=== PATIENT | female | born 1975 | race Caucasian/White ===

== ENCOUNTER 2017-03-05 11:59 | Emergency (ER) | payer BC ==
--- NOTE | ~2017-03-05 | CR127 ---
[facility] A Service of [facility] RADIOLOGY TEXT RESULTS PATIENT: MANNY APPLE LOCATION: SED : 79 UNIT #: [id number] AGE: [address]: DALE PRATT SEX: F ORDER DR: [id number] [address] [address] [id number] E MR#: [id number] #: [id number] NAME: MANNY APPLE : 1975 SEX: F STUDY DATE/TIME: 03/05/2017 UNIT: SED ROOM: STUDY DESCRIPTION: CR Foot Complete Min 3 View Rt Ordering Physician: [facility] Primary Care Physician: Ramsey Molina M.D. MEDICAL IMAGING REPORT This report is preliminary unless electronic signature is present. EXAM Right foot 3 views 03/05/2017 1256 hours HISTORY 41-year-old woman who woke up with foot pain this morning medially. No reported injury. COMPARISON Right foot film 10/29/2013. FINDINGS AP, lateral and oblique views demonstrate overall normal bone density. There is no acute fracture or dislocation. Previous fracture of the proximal phalanx of the fifth toe 10/29/2013 has healed with no evidence of residual fracture. There is a bipartite sesamoid bone deep to the first metatarsal. There is mild soft tissue prominence at the first metatarsal-phalangeal joint. IMPRESSION 1. There is mild soft tissue prominence at the first metatarsal-phalangeal joint medially with 2 small subarticular cysts present, not seen in 2013. There is no fracture. There is a bipartite sesamoid deep to the first metatarsal, unchanged. 2. Previous fracture of the proximal phalanx fifth toe seen on 10/29/2013 has healed. 3. No periosteal thickening. Dictated by... Chichi Trammell M.D. THIS IS AN ELECTRONICALLY VERIFIED REPORT [facility] A Service of [facility] RADIOLOGY TEXT RESULTS PATIENT: MANNY APPLE LOCATION: SED : 79 UNIT #: [id number] AGE: [address]: DALE PRATT SEX: F ORDER DR: Chichi Trammell M.D. at 03/06/2017 9:29 AM COLIN/dick TD: 03/05/2017 18:15 JOB #: [id number] MEDICAL IMAGING REPORT Page 1 of 1
[~2017-03-05 11:59] MED LIST: IMITREX; IMITREX PO; MOTRIN600 M1 PO; MULTI-DAY VITAM1 TAB PO; PHENERGAN PR; PRENATAL MULITV1 TAB PO; PRISTIQ50 MG; VICODIN 5/1 TAB 5/50 PO
[2017-03-05] MEDS ORDERED: MOTRIN600 MG PO (13:49)
== END 2017-03-05 13:51 | disposition home or self-care (01) ==
LOC: SED 11:59
DX: M85.671 Other cyst of bone, right ankle and foot (principal)
CPT/HCPCS: 29405; 73630; 99284